=== PATIENT | female | born 1980 | race Caucasian/White ===

== ENCOUNTER 2021-02-22 22:29 | Emergency (ER) | payer OTHER, SELFPAY ==
[2021-02-22 22:37] VITALS: BP 121/79; PULSE 81; RESP 17; TEMP 36.6; O2SAT 100; BMI 18.6
[2021-02-22] MEDS: SODIUM CHLORIDE 0.9% 1,000 ML 1000 ML IV (22:40)
--- NOTE | 2021-02-22 23:01 | ED_ITS ---
HPI - General Adult General Chief complaint: Syncope Stated complaint: Near Syncope / Dizzy Time Seen by Provider: 02/22/21 22:44 Source: patient and EMS Mode of arrival: EMS Limitations: no limitations History of Present Illness HPI narrative: Patient is a 41-year-old female who is brought in by EMS for evaluation of a syncopal episode patient states that she was standing at home reaching for a piece of food when she states that she felt like her heart was beating fast and then the room started to spin and then she felt like she was going to pass out. Her is right by her and stated that she did pass out although she did not fall to the ground he helped her to the ground. She was somewhat confused as to why she was on the ground but there was no loss of bowel or bladder. She did start her menstrual cycle today. Related Data Allergies Allergy/AdvReac Type Severity Reaction Status Date / Time amoxicillin AdvReac Gastrointestinal Verified 02/22/21 22:37 Upset Review of Systems Constitutional Constitutional: Denies headache(s) ENT Ears, Nose, Mouth, and Throat: Denies headache(s) Cardiovascular Cardiovascular: Reports as per HPI Respiratory Respiratory: Reports system reviewed and no additional complaints, except as documented Gastrointestinal Gastrointestinal: Reports as per HPI Genitourinary Genitourinary: Reports as per HPI Musculoskeletal Musculoskeletal: Reports system reviewed and no additional complaints, except as documented Integumentary/Breasts Skin/Breast: Reports system reviewed and no additional complaints, except as documented Neurologic Neurologic: Denies headache(s) Hematologic/Lymphatic On Anticoagulants: No Allergic/Immunologic Allergic/Immunologic: Reports system reviewed and no additional complaints, except as documented Patient History Medical History Healthy adult Social History Smoking Status: Never smoker Smoking Status: Never smoker alcohol intake frequency: a few times a week Substance Use Type: does not use Exam Initial Vital Signs Initial Vital Signs: Vital Signs Temperature 97.9 F 02/22/21 22:37 Pulse Rate 81 02/22/21 22:37 Respiratory Rate 17 02/22/21 22:37 Blood Pressure 121/79 02/22/21 22:37 Pulse Oximetry 100 02/22/21 22:37 Const General: cooperative and healthy appearing HENME Head: normal to inspection and normocephalic Eyes General: appearance normal, both eyes and all related structures Resp Effort & Inspection: normal respiratory effort Auscultation: clear to auscultation bilaterally Cardio Rate: regular rate Rhythm: regular rhythm GI Inspection: normal to inspection Skin General: no rashes or lesions noted Neuro General: patient alert, patient awake and patient oriented x3 Extrem General: normal to inspection Psych Appearance: grossly normal and well kempt Course Orders Ordered: ED Orders 02/22/21 22:45 EKG-12 Lead Stat 02/22/21 23:20 Basic Metabolic Panel Stat Complete Blood Count AUTO DIFF Stat Discontinued Medications Sodium Chloride (Normal Saline 0.9%) 1,000 mls @ 1,000 mls/hr IV BOLUS ONE Stop: 02/22/21 23:43 Last Infusion: 02/23/21 00:29 Dose: 0 mls/hr Documented by: Admin: 02/22/21 22:40 Dose: 1,000 mls/hr Documented by: VAMSI Vital Signs Vital signs: Vital Signs - 8 hr 02/22/21 22:37 02/23/21 00:24 Temperature 97.9 F Pulse Rate 81 81 Respiratory Rate 17 16 Blood Pressure 121/79 103/66 Pulse Oximetry 100 99 Medical Decision Making Lab Data Lab results reviewed: Yes I reviewed the patient's lab results. Result diagrams: 02/22/21 23:20 02/22/21 23:20 Labs: Lab Results 02/22/21 02/22/21 Range/Units 23:20 23:20 WBC 8.5 (4.5-11.0) X10^3/uL RBC 4.53 (4.0-5.2) X10^6/uL Hgb 13.7 (12.0-16.0) g/dL Hct 40.0 (36-46) % MCV 88.2 (80-100) fL MCH 30.1 (26-34) PG MCHC 34.2 (30-36) % RDW 13.5 (11.6-14.8) % Plt Count 169 (150-400) X10^3/uL Neut % (Auto) 78.7 H (50-75) % Lymph % (Auto) 13.9 L (25-40) % Mcpherson % (Auto) 4.9 (3-14) % Eos % (Auto) 2.0 (2-4) % Baso % (Auto) 0.5 (0-2) % Neut # (Auto) 6700 (9762-1978) /uL Lymph # (Auto) 1200 (7098-9226) /uL Mcpherson # (Auto) 400 (0-900) /uL Eos # (Auto) 200 (0-450) /uL Baso # (Auto) 0 (0-100) /uL Sodium 139 (137-145) mmol/L Potassium 4.6 (3.4-5.1) mmol/L Chloride 107 (98-107) mmol/L Carbon Dioxide 27 (22-32) mmol/L BUN 18 H (7-17) mg/dL Creatinine 0.67 (0.52-1.04) mg/dL Estimated GFR > 60.0 (>60) mL/min BUN/Creatinine Ratio 26.9 H (6-22) Glucose 111 H (70-100) mg/dL Calcium 8.8 (8.4-10.2) mg/dL Point of Care Testing Test Results Negative Urine Dip Bedside Urine Glucose Negative Bedside Urine Bilirubin - Negative Bedside Urine Ketone - Negative Urine Specific [place] 1.025 Bedside Urine Occult Blood +++ Bedside Urine pH 6 Bedside Urine Protein +/- 15 Bedside Urine Urobilinogen - Negative Bedside Urine Nitrite - Negative Bedside Urine Leukocytes - Negative Esterase Point of care testing: Point of Care Testing Test Results Negative Urine Dip Bedside Urine Glucose Negative Bedside Urine Bilirubin - Negative Bedside Urine Ketone - Negative Urine Specific [place] 1.025 Bedside Urine Occult Blood +++ Bedside Urine pH 6 Bedside Urine Protein +/- 15 Bedside Urine Urobilinogen - Negative Bedside Urine Nitrite - Negative Bedside Urine Leukocytes - Negative Esterase ECG Data Attestation: I personally reviewed and interpreted this ECG as follows: Interpretation: Sinus rhythm Ventricular rate is 76 [place] Normal QRS Normal QTC No ST T wave changes MDM Narrative Medical decision making narrative: Patient's labs unremarkable. EKG is unremarkable. Afebrile. Normal neurologic exam. I suspect this was a vagal re action. I feel we can hold on further workup for now. Patient was feeling better after the time here in the emergency department. They would like to go home. There was given return precautions and follow-up instructions. They expressed understanding and agreement. Discharge Plan Departure Patient Disposition: Home Clinical Impression: Syncope Instructions: DI for Syncope in Adults (Fainting) Activity Restrictions/Additional Instructions: Recommend that you continue to increase your fluid intake. Contact your primary provider for a follow-up. Return to the emergency department for any new or worsening symptoms.
[2021-02-22 23:30] LABS: Add Manual Diff / Slide Review NO; Basophils Absolute Auto 0 /uL (0-100); Basophils Percent Auto 0.5 % (0-2); Eosinophils Absolute Auto 200 /uL (0-450); Hemoglobin 13.7 g/dL (12.0-16.0); Lymphocytes Absolute Auto 1200 /uL (1100-4500); Lymphocytes Percent Auto 13.9 % (25-40); Mean Corpuscular HGB Conc 34.2 % (30-36); Mean Corpuscular Hemoglobin 30.1 PG (26-34); Mean Corpuscular Volume 88.2 fL (80-100); Monocytes Absolute Auto 400 /uL (0-900); Monocytes Percent Auto 4.9 % (3-14); Neutrophils Absolute Auto 6700 /uL (1500-7000); Neutrophils Percent Auto 78.7 % (50-75); Platelet Count 169 X10^3/uL (150-400); Red Blood Cell Count 4.53 X10^6/uL (4.0-5.2); Red Cell Distribution Width 13.5 % (11.6-14.8); White Blood Cell Count 8.5 X10^3/uL (4.5-11.0)
[2021-02-22 23:41] LABS: BUN Creatinine Ratio 26.9 (6-22); Blood Urea Nitrogen 18 mg/dL (7-17); Calcium 8.8 mg/dL (8.4-10.2); Carbon Dioxide 27 mmol/L (22-32); Chloride 107 mmol/L (98-107); Estimated Glomerular Filt Rate > 60.0 mL/min (>60); Glucose 111 mg/dL (70-100); HEMOLYSIS < 15 (0-50); Potassium 4.6 mmol/L (3.4-5.1); Sodium 139 mmol/L (137-145)
[2021-02-23 00:24] VITALS: BP 103/66; PULSE 81; RESP 16; O2SAT 99
== END 2021-02-23 00:25 | disposition home or self-care (01) ==
PROVIDERS: Emergency Provider Emergency Medicine
DX: R55 Syncope and collapse (principal)
CPT/HCPCS: 36415; 80048; 81003; 81025; 85025; 93005; 93010; 96360; 96361; 99284